=== PATIENT | female | born 1980 | race African-American/Black ===

== ENCOUNTER 2021-07-11 08:45 | Day surgery (SDC) | payer OTHER ==
[2021-07-11] MEDS ORDERED: NA CHLORIDE 0.9% 1,000 ML ONE (09:22)
[2021-07-11 09:58] VITALS: BMI 31.7
[2021-07-11] MEDS ORDERED: FENTANYL CITR 100 MCG/2 ML ONE (12:04)
[2021-07-11] MEDS ORDERED: MIDAZOLAM HCL 2 MG/2 ML INJ ONE (12:04)
--- NOTE | 2021-07-11 13:31 | RAD REPORT ---
EXAM DESCRIPTION: CT - Renal Biopsy CT - 07/11/2021 1:08 pm CLINICAL HISTORY: renal bx COMPARISON: No comparisons FINDINGS: Preoperative diagnosis: Renal disease Post operative diagnosis: Same Conscious Sedation: Versed and Fentanyl. Patient was continuously monitored by nursing staff. 30 minutes of [id number] time. Contrast used: NONE Estimated blood loss: less than 5 mL Specimens: 3 x 18 gauge core samples were obtained The patient was placed prone on the table and the back area was prepped and draped in the usual steri le fashion. 1% lidocaine was infiltrated into the subcutaneous tissues for local anesthesia. Under co mputed tomographic guidance, a 17 gauge introducer was advanced into the lesion. Subsequently, a 18 g auge, 15 cm long, 20 mm throw core biopsy gun was advanced into the lesion and 3 cores were obtained. Postprocedure imaging demonstrated no complications. Samples were given to pathology for analysis. Th e patient tolerated the procedure without immediate complication and transferred to the recovery room in stable condition. IMPRESSION: Technically successful CT-guided random right renal biopsy. No immediate complications. Conscious sedation was utilized. All CT scans are performed using dose optimization technique as appropriate and may include automated exposure control or mA/KV adjustment according to patient size.
[2021-07-11 15:43] VITALS: TEMP 97.4
[2021-07-11 17:31] VITALS: BP 112/72; O2SAT 100
== END 2021-07-11 17:29 | disposition home or self-care (01) ==
LOC: DS 08:45
PROVIDERS: ATTEND Internal Medicine
PROC: 0TB03ZX Excision of Right Kidney, Percutaneous Approach, Diagnostic (ICD-10-PCS; principal; 2021-07-11)
PROC: BT21ZZZ Computerized Tomography (CT Scan) of Right Kidney (ICD-10-PCS; 2021-07-11)
DX: N28.9 Disorder of kidney and ureter, unspecified (principal)
CPT/HCPCS: 36415; 84703; 88300; 50200; 77012; J2250; J3010; J7030